=== PATIENT | female | born 1930 | race Caucasian/White ===

== ENCOUNTER 2016-09-22 16:36 | Emergency (ER) | payer OTHER, MEDICARE ==
[~2016-09-22 16:36] MED LIST: BISOPROLOL/HCTZ1 TA1 PO; CALCIUM 600600 M1 PO; ESCITALOPRAM5 MG PO; ULTRAM(MONOGRAP50 MG PO; VITAMIN D1000 IU PO
--- NOTE | 2016-09-22 17:20 | ED GENERAL ADULT ---
History of Present Illness General Chief Complaint: General Adult Stated Complaint: HIGH BP,MARTIN Source: patient Exam Limitations: no limitations Vital Signs & Intake/Output Vital Signs & Intake/Output Vital Signs Date Time Temp Pulse Resp B/P B/P Pulse O2 O2 Flow FiO2 Mean Ox Delivery Rate 09/22 2049 98.0 60 18 172/70 97 Room Air Room Air 09/22 1925 61 20 180/72 98 Room Air 09/22 1840 57 20 190/85 09/22 1816 57 20 190/85 98 Room Air 09/22 1645 98.1 80 16 178/91 98 Room Air ED Intake and Output 09/23 0000 09/22 1200 Intake Total Output Total Balance Patient 166 lb Weight Weight Standing Scale Measurement Method Allergies Coded Allergies: clarithromycin (UNKNOWN 09/22/16) Reconcile Medications Bisoprolol Fumarate/Hctz (Bisoprolol-Hctz 5-6.25 MG Tab) 5 MG-6.25 MG TABLET 1 TAB PO DAILY BP (Reported) Cholecalciferol (Vitamin D3) (Vitamin D) (Unknown Strength) CAPSULE (Unknown Dose) PO DAILY UNKNOWN (Reported) Donepezil HCl (Unknown Strength) TABLET (Unknown Dose) UNKNOWN (Reported) Escitalopram Oxalate (Unknown Strength) TABLET (Unknown Dose) UNKNOWN ( Reported) Lactobacillus Acidophilus (Acidophilus) 1 EACH CAPSULE 1 CAP PO DAILY PROBIOTIC (Reported) Lorazepam (Ativan) 1 MG TABLET 1 TAB PO BID PRN anxiety Lorazepam (Ativan) 0.5 MG TABLET 1 TAB PO BIDP PRN ANXIETY Triage Note: TRIAGE: TO ED WITH CONCERN FOR HIGH BP AND "FUZZY FEELING" IN HEAD. ENDORSES RESTLESSNESS AND JITTERY FEELING. SPEECH CLEAR. ABLE TO FOLLOW COMMANDS. NO FACIAL DROOP NOTED, EQUAL HAND GRASPS AND PEDAL PUSHES. PUPILS CONSTRICTED AND REACTIVE TO LIGHT. BP 178/91 IN TRIAGE. NORMAL SINUS WITHOUT ECTOPY ON EKG. DENIES SYMPTOMS. -N/V/D Triage Nurses Notes Reviewed? yes Onset: Abrupt Duration: day(s): (2-3), constant, continues in ED Timing: single episode today Severity: mild, moderate Severity Numbers: 5 No Modifying Factors: none LMP (ages 10-50): post menopausal : No Patient currently breastfeeds: No HPI: 86-year-old female with history of hypertension presents for evaluation of headache, anxiety, fatigue, restlessness," fuzzy feeling". Patient reports symptoms started 2 or 3 days ago and it gradually been worsening. She reports a frontal headache that she describes as pressure. She rates the pain as a 4 or 5 out of 10 at does not radiate. Not taking any medications for the pain. He also reports that her blood pressure has been elevated in the past few days to 170s or 180s over 100s. Her blood pressures usually well-controlled with medication. Patient reports she feels like she cannot sit still and has to be moving around constantly. She reports she has been feeling anxious and restless ever since she retired back in May. She denies any chest pain, shortness of breath, head trauma, fevers, changes in vision, abdominal pain, nausea, vomiting, weakness, recent travel or any other associated symptoms. (SAI GRIMES PA-C) Past History Travel History Traveled to [place] past 21 day No Medical History Any Pertinent Medical History? see below for history Neurological: NONE EENT: NONE Cardiovascular: hypertension Respiratory: NONE Gastrointestinal: NONE Hepatic: NONE Renal: NONE Musculoskeletal: NONE Psychiatric: NONE Endocrine: NONE Cancer(s): NONE Pneumonia Vaccine: 01/30/14 Surgical History Surgical History: none Psychosocial History Who do you live with Patient/Self What is your primary language Panamanian Tobacco Use: Never used Family History Hx Contributory? Yes (SAI GRIMES PA-C) Review of Systems Review of Systems Constitutional: Reports: no symptoms. EENTM: Reports: no symptoms. Respiratory: Reports: no symptoms. Cardiovascular: Reports: no symptoms. GI: Reports: no symptoms. Genitourinary: Reports: no symptoms. Musculoskeletal: Reports: no symptoms. Skin: Reports: no symptoms. Neurological/Psychological: Reports: see HPI, anxiety, other (headache). Hematologic/Endocrine: Reports: no symptoms. Immunologic/Allergic: Reports: no symptoms. All Other Systems: Reviewed and Negative (SAI GRIMES PA-C) Physical Exam Physical Exam General Appearance: well developed/nourished, no apparent distress, alert, awake , anxious Comments: General: Hemodynamically stable. Afebrile. Well-developed well-nourished person in no acute distress. Head: Atraumatic, normocephalic Eyes: EOMI bilaterally, PERRLA, conjunctiva are not injected, no discharge, no nystagmus, fundus grossly normal bilaterally Nose: Atraumatic, no rhinorrhea, mucosa is not erythematous, no epistaxis. Sinuses are non-tender Ears: TM pearly botello color bilaterally, external canal is clear, no discharge, hearing is normal Mouth: Appropriate dentition, no gingival bleeding, moist mucus membranes, no oral lesions, tonsils not erythematous or enlarged and free of exudate. Uvula rises midline. Neck: Supple, full active ROM, no lymphadenopathy, no midline tenderness to palpation, no thyromegaly, no tracheal deviation. Back: Non-tender, full active ROM, no scoliosis, no CVA tenderness Cardiovascular: regular rate and rhythm, no murmurs, rubs, or gallops. No JVD Respiratory: Chest is nontender. Regular respiratory rate and effort. No accessory muscle use. Lungs clear to auscultation bilaterally. Abdomen: Soft, non-tender, non-distended, no organomegaly. No rebound tenderness or guarding. Normoactive bowel sounds. Extremities: No edema. No gross deformities. No joint swelling. No calf swelling or tenderness. Full active and passive ROM. Strength 5/5 in upper and lower extremities. Peripheral pulses 2+ bilaterally, Patellar DTR 2+ Neuro: No confusion. Motor and sensory function is intact. Appropriate gait. Cerebellar function intact. Skin: Warm and dry. Appropriate turgor. No lesions or bruising. No appreciable rash on exposed skin. psych: No HI or SI Core Measures ACS in differential dx? No CVA/TIA Diagnosis: No Severe Sepsis Present: No Septic Shock Present: No (SYDNEY OVALLE,SAI) Progress Differential Diagnoses I considered the following diagnoses in my evaluation of the patient: Hypertensive urgency, hypertensive emergency, migraine headache tension headache , urinary tract infection, electrolyte disturbance, acute coronary syndrome, CVA , acute attack, generalized anxiety disorder Plan of Care: Orders Procedure Date/time Status Add-on Test (ER Only) 09/22 1821 Active D-DIMER 09/22 1805 Complete Telemetry/[place] 09/22 1748 Active URINALYSIS 09/22 1748 Complete TROPONIN LEVEL 09/22 1748 Complete COMPREHENSIVE METABOLIC PANEL 09/22 174 Complete CBC WITHOUT DIFFERENTIAL 09/23 1747 Complete EKG 09/22 1637 Active Laboratory Tests 09/22/161954: Urine Color YEL, Urine Clarity CLEAR, Urine pH 6.0, Ur Specific [place] 1.025, Urine Protein NEG, Urine Ketones NEG, Urine Nitrite NEG, Urine Bilirubin NEG, Urine Urobilinogen 0.2, Ur Leukocyte Esterase TRACE H, Ur Microscopic SEDIMENT EXAMINED, Urine RBC 1-3, Ur Epithelial Cells RARE, Urine Mucus RARE, Urine Hemoglobin NEG, Urine Glucose NEG 09/22/161820: D-Dimer High Sensitivty Cancelled 09/22/161804: Anion Gap 12, Estimated GFR > 60, BUN/Creatinine Ratio 21.3, Glucose 94, Calcium 10.3 H, Total Bilirubin 0.9, AST 19, ALT 31, Alkaline Phosphatase 89, Troponin I < 0.01, Total Protein 7.2, Albumin 4.4, Globulin 2.8, Albumin/Globulin Ratio 1.6, D-Dimer High Sensitivty < 200, CBC w Diff NO MAN DIFF REQ, RBC 4.58, MCV 89.6, MCH 30.1, RDW 13.2, MPV 8.4, Gran % 70.1, Lymphocytes % 20.9, Monocytes % 6.8, Eosinophils % 1.8, Basophils % 0.4, Absolute Granulocytes 5.3, Absolute Lymphocytes 1.6, Absolute Monocytes 0.5, Absolute Eosinophils 0.1, Absolute Basophils 0, PUBS MCHC 33.6 Patient is currently reporting nonspecific symptoms but she is hypertensive. Her EKG is normal sinus rhythm. We will draw some blood and get a CT scan of her head for further evaluation. Patient currently denies any pain medication. 7:49 PM: All blood work is within normal limits. CT scan of the head is within normal limits. Patient was given 0.5 of Ativan by mouth and 10 mg of hydralazine IV. Her blood pressure is coming down to the 180s and patient reports feeling much better. Still waiting on urinalysis but as long as this comes back normal she'll be discharged home. Will be given oral Ativan to use as needed for anxiety. She'll also follow up with her primary care doctor this coming week to address her blood pressure. Patient be discharged as soon as her urinalysis is back. Case discussed with Dr. Alberto and he agrees the plan. u/a is within normal limits. Patient will be discharged home. (SYDNEY OVALLE,SAI) Initial ED EKG: normal sinus rhythm, no ST or T wave changes Comments: PATIENT: RACHELLE BROWN PRESENT AGE: 86 PATIENT ACCOUNT NO: [id number] : 30 LOCATION: [facility] ORDERING PHYSICIAN: SAI GRIMES PA-C SERVICE DATE: 09/22/16 EXAM TYPE: CAT - CT HEAD WO IV CONTRAST EXAMINATION: CT HEAD WITHOUT CONTRAST CLINICAL INFORMATION: Hypertensive urgency, headache COMPARISON: None TECHNIQUE: Contiguous axial imaging was performed from the skull base to vertex without intravenous administration of contrast. DLP: 628.8 mGy-cm FINDINGS: There is no evidence of acute intracranial hemorrhage or territorial infarction. No abnormal mass effect or midline shift is seen. Botello to white matter differentiation is well preserved. No extra-axial fluid collections are identified. The ventricles are normal in size. There is no abnormal attenuation within the brain parenchyma. The osseous structures and soft tissues are normal. The mastoid air cells and visualized portions of the paranasal sinuses are well aerated. IMPRESSION: No acute intracranial pathology. DICTATED BY: LUIS CARLOS MCKEON MD DATE/TIME DICTATED:09/22/161852 DISPLAY AND BANNER DESIGNER:MI DATE/TIME TRANSCRIBED:09/22/161852 CONFIDENTIAL, DO NOT COPY WITHOUT APPROPRIATE AUTHORIZATION. <Electronically signed in Other Vendor System> SIGNED BY: LUIS CARLOS MCKEON MD 09/22/161856 (SYDNEY OVALLE,SAI) Departure Departure Disposition: HOME OR SELF CARE Condition: Stable Clinical Impression Primary Impression: Headache Qualifiers: Headache type: unspecified Headache chronicity pattern: acute headache Intractability: not intractable Qualified Code: R51 - Headache Secondary Impressions: Hypertensive urgency Referrals: MICHELA FLORES MDO (PCP/Family) Additional Instructions: Continue to take your blood pressure medicines as directed. you can use Ativan every 8-12 hours as needed for anxiety. This may cause drowsiness. make a follow appt with your primary care doctor this coming week to address her blood pressure. Turned to the emergency department for any concerns. Please go over all results of today's visit with your primary care doctor. Contact your primary care doctor to let them know you were here in the emergency room. There may be nonspecific findings which may not be related to your visit today here in the emergency room but may require further evaluation and chronic monitoring by your primary care doctor. If you had a laceration today the chance of foreign body always remains. You should follow-up with your primary care doctor for recheck in 3-5 days for a wound check. If you had an x-ray done there is a chance that a fracture could have been missed on initial read and you should follow-up with your primary care doctor for repeat x-rays if symptoms persist. If your blood pressure was elevated here in the emergency room please have rechecked by her primary care doctor within the next 48 hours by your primary care doctor. If you were prescribed a narcotic here in the emergency room or any type of controlled substances you're not allowed to drive while taking this medication or operate any type of heavy machinery. Narcotics can make you feel lightheaded dizziness nausea and can cause constipation. You may need to machine pecan picker a stool softener. Thank you for choosing [facility] emergency room. Please return to the emergency room immediately if you have any other concerns worsening of symptoms. Departure Forms: Customer Survey General Discharge Information Prescriptions: Current Visit Scripts Lorazepam (Ativan) 1 TAB PO BID PRN anxiety #10 TAB Lorazepam (Ativan) 1 TAB PO BIDP PRN ANXIETY #10 TAB (SAI GRIMES PA-C) PA/PIT LABORER Co-Sign Statement Statement: ED Attending supervision documentation- [X] I saw and evaluated the patient. I have also reviewed all the pertinent lab results and diagnostic results. I agree with the findings and the plan of care as documented in the PA's/PIT LABORER's documentation. [X] I have reviewed the ED Record and agree with the PA's/PIT LABORER's documentation. [] Additions or exceptions (if any) to the PAs/PIT LABORER's note and plan are summarized below: [] (DENISA PINA,SLAVA Manrique) Critical Care Note Critical Care Note Critical Care Time: non-applicable (SAI GRIMES PA-C)
[2016-09-22] MEDS ORDERED: DONEPEZIL HCL5 MG (17:24)
[2016-09-22] MEDS ORDERED: BISOPROLOL-HCT1 EAC1 PO (17:24)
[2016-09-22] MEDS ORDERED: ESCITALOPRAM OXA5 MG (17:25)
[2016-09-22] MEDS ORDERED: ACIDOPHILUS1 EACH PO (17:25)
[2016-09-22] MEDS ORDERED: VITAMIN D2000 UNIT PO (17:25)
[2016-09-22 18:13] LABS: ABSOLUTE BASOPHIL COUNT 0 /CUMM (0.0-0.2); ABSOLUTE EOSINOPHIL COUNT 0.1 /CUMM (0.0-0.7); ABSOLUTE GRANULOCYTE CT 5.3 /CUMM (1.4-6.5); ABSOLUTE LYMPH COUNT 1.6 /CUMM (1.2-3.4); ABSOLUTE MONOCYTE COUNT 0.5 /CUMM (0.10-0.60); BASOPHIL % 0.4 % (0.0-2.0); EOSINOPHIL % 1.8 % (0-5); GRANULOCYTE % 70.1 % (42.2-75.2); MEAN CORPUSCULAR HGB 30.1 PG (27.0-31.0); MEAN CORPUSCULAR HGB CONC 33.6 G/DL (33.0-37.0); MEAN CORPUSCULAR VOLUME 89.6 FL (81.0-99.0); MEAN PLATELET VOLUME 8.4 FL (7.4-10.4); PLATELET COUNT 225 /CUMM (130-400); RBC DISTRIBUTION WIDTH 13.2 % (11.5-14.5); RED BLOOD CELL CT 4.58 /CUMM (4.20-5.40); WHITE BLOOD CELL COUNT 7.6 /CUMM (4.8-10.8)
--- NOTE | 2016-09-22 18:57 | CT SCAN REPORT ---
EXAMINATION: CT HEAD WITHOUT CONTRAST CLINICAL INFORMATION: Hypertensive urgency, headache COMPARISON: None TECHNIQUE: Contiguous axial imaging was performed from the skull base to vertex without intravenous administration of contrast. DLP: 628.8 mGy-cm FINDINGS: There is no evidence of acute intracranial hemorrhage or territorial infarction. No abnormal mass effect or midline shift is seen. Botello to white matter differentiation is well preserved. No extra-axial fluid collections are identified. The ventricles are normal in size. There is no abnormal attenuation within the brain parenchyma. The osseous structures and soft tissues are normal. The mastoid air cells and visualized portions of the paranasal sinuses are well aerated. IMPRESSION: No acute intracranial pathology.
[2016-09-22] MEDS ORDERED: ATIVAN1 M1 PO (20:27)
[2016-09-22 20:50] VITALS: BP 172/70
[2016-09-22] MEDS ORDERED: ATIVAN0.5 M1 PO (20:51)
== END 2016-09-22 20:52 ==
LOC: ERH 16:36
PROVIDERS: Physician Assistant Medical
DX: R51 Headache (principal); I10 Essential (primary) hypertension
CPT/HCPCS: 81001; 93005; 93010; 96374; J0360